=== PATIENT | female | born 1945 | race Two or more races ===

== ENCOUNTER 2019-11-30 12:30 | Outpatient (CLI) | payer BC | END 2019-11-30 23:59 | disposition home or self-care (01) | LOC: WOU 12:30 | PROVIDERS: ATTEND Surgery | DX: Z90.11 Acquired absence of right breast and nipple (principal); Z85.3 Personal history of malignant neoplasm of breast; Z92.21 Personal history of antineoplastic chemotherapy; E03.9 Hypothyroidism, unspecified; Z79.3 Long term (current) use of hormonal contraceptives; I15.9 Secondary hypertension, unspecified | CPT/HCPCS: G0463 ==

== ENCOUNTER 2019-12-28 12:00 | Outpatient (CLI) | payer BC | END 2019-12-28 23:59 | disposition home or self-care (01) | LOC: WOU 12:00 | PROVIDERS: ATTEND Surgery | DX: Z90.11 Acquired absence of right breast and nipple (principal); Z85.3 Personal history of malignant neoplasm of breast; Z92.21 Personal history of antineoplastic chemotherapy; Z92.3 Personal history of irradiation; E11.9 Type 2 diabetes mellitus without complications; Z79.84 Long term (current) use of oral hypoglycemic drugs; E03.9 Hypothyroidism, unspecified; I15.9 Secondary hypertension, unspecified | CPT/HCPCS: G0463 ==